=== PATIENT | male | born 1945 | race Caucasian/White ===

== ENCOUNTER 2021-09-24 07:45 | Inpatient (IN) | payer MEDICARE, OTHER ==
[~2021-09-24] VITALS: Ht 175.3 cm; Wt 77.4 kg
[2021-09-24 08:11] LABS: BASOPHILS # (AUTO) 0.1 10^3/uL (0.0-0.1); BASOPHILS % (AUTO) 1 % (0-10); EOSINOPHILS # (AUTO) 0.2 10^3/uL (0.0-0.3); EOSINOPHILS % (AUTO) 3 % (0-10); HEMATOCRIT 44 % (40-54); HEMOGLOBIN 14.9 g/dL (13.3-17.7); LYMPHOCYTES # (AUTO) 1.4 10^3/uL (1.0-4.0); LYMPHOCYTES % (AUTO) 16 % (12-44); MEAN CORPUSCULAR HEMOGLOBIN 31 pg (25-34); MEAN CORPUSCULAR HGB CONC 34 g/dL (32-36); MEAN CORPUSCULAR VOLUME 92 fL (80-99); MEAN PLATELET VOLUME 9.6 fL (9.0-12.2); MONOCYTES # (AUTO) 0.7 10^3/uL (0.0-1.0); MONOCYTES % (AUTO) 9 % (0-12); NEUTROPHILS # (AUTO) 5.9 10^3/uL (1.8-7.8); NEUTROPHILS % (AUTO) 71 % (42-75); PLATELET COUNT 164 10^3/uL (130-400); WHITE BLOOD COUNT 8.3 10^3/uL (4.3-11.0)
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
[2021-09-24 08:28] LABS: INR 0.9 (0.8-1.4); PROTHROMBIN TIME PATIENT 12.8 SEC (12.2-14.7)
--- NOTE | 2021-09-24 08:28 | Diagnostic Imaging Report ---
INDICATION: 76-year-old male with chest pain and shortness of breath COMPARISONS: None FINDINGS: Single view of the chest shows the cardiac contour to be upper limits normal. There is some mild central venous prominence. Some background chronic parenchymal changes. Few scattered atelectatic infiltrates may be present but no consolidations. There is no effusion or pneumothorax. There is a previous median sternotomy for a CABG. Soft tissues and bony thorax are grossly unremarkable. IMPRESSION: 1. Questionable mild central venous congestion. 2. Few scattered atelectatic infiltrates and some background chronic parenchymal changes but no acute consolidations. 3. Previous CABG. Dictated by: Dictated on workstation # [id number]
[2021-09-24 08:36] LABS: BILIRUBIN,TOTAL 0.2 MG/DL (0.1-1.0); CALCIUM 9.3 MG/DL (8.5-10.1); CREATININE SERUM 1.25 MG/DL (0.60-1.30); POTASSIUM 4.2 MMOL/L (3.6-5.0)
[2021-09-24 08:37] LABS: ALBUMIN 3.6 GM/DL (3.2-4.5); TOTAL PROTEIN 6.9 GM/DL (6.4-8.2)
[2021-09-24] MEDS ORDERED: NITROGLYCERIN 2% OINT 1 GM UNIT DOSE PACKET TOP ONE (08:45)
[2021-09-24] MEDS ORDERED: CLOPIDOGREL 300 MG (PLAVIX) TABLET PO ONE (08:45)
[2021-09-24] MEDS ORDERED: ENOXAPARIN 80 MG/0.8 ML (LOVENOX) SYR SC ONE (08:45)
[2021-09-24] MEDS ORDERED: NICOTINE 21 MG (NICODERM) PATCH TD ONE (09:15)
[2021-09-24] MEDS ORDERED: LORazepam INJ 2 MG/ML (ATIVAN) VIAL IVP ONE (09:15)
[2021-09-24 09:27] VITALS: BP 141/87
[2021-09-24] MEDS ORDERED: ANTACID SUSP 30 ML UDC (MYLANTA) PO PRN (10:30)
[2021-09-24] MEDS ORDERED: ONDANSETRON 4 MG (ZOFRAN) ORAL DISSOLVE TAB PO PRN (10:30)
[2021-09-24] MEDS ORDERED: MELATONIN 3 MG TABLET PO PRN (10:30)
[2021-09-24] MEDS ORDERED: ONDANSETRON 4 MG/2 ML (SDV) Z0FRAN IV PRN (10:30)
[2021-09-24] MEDS ORDERED: diphenhydrAMINE 25 MG TAB (BENADRYL) PO PRN (10:30)
[2021-09-24] MEDS ORDERED: LORazepam 0.5 MG (ATIVAN) TABLET PO PRN (10:30)
[2021-09-24] MEDS ORDERED: ACETAMINOPHEN 325 MG TABLET PO PRN ×2 (10:30→13:00)
[2021-09-24] MEDS ORDERED: polyethylene glycoL POWDER 17 GM (MIRALAX) PACK PO PRN (10:30)
--- NOTE | 2021-09-24 11:14 | Consultation-Cardiology ---
HPI-Cardiology Cardiology Consultation: Date of Consultation 09/24/21 Time Seen by a Provider: 10:40 Date of Admission Attending Physician Marilu Hancock MD Admitting Physician Chivo Membreno MD Consulting Physician ERMA MADRID MD, MA, FACP, FACC, FSCAI, CCDS HPI: Chief Complaint: Chest discomfort HPI 76 yo with midsternal soreness that began at 9 pm on 09/23/21, persisted all night, and resolved nearly completely in the ER at [facility] where he went at ap prox 7:30 am, he says. Has not experienced such discomfort before. It radiated to the L shoulder, it was improved by s/l NTG, it was not associated with n/v or diaphoresis. Denies palp or syncope or swelling. States has not been on any meds at all Review of Systems-Cardiology Review of Systems Constitutional: No malaise, No tiredness, No weight loss, No weight gain Eyes: No vision change Ears/Nose/Throat: No ear discharge, No nasal drainage, No recent hearing loss Respiratory: As described under HPI Cardiovascular: As described under HPI Gastrointestinal: As described under HPI Genitourinary: No dysuria, No hematuria Musculoskeletal: No back pain, No joint pain Skin: No rash, No ulcerations Psychiatric/Neurological: No seizure, No focal weakness, No syncope Hematologic: No bleeding abnormalities All Other Systems Reviewed Negative Unless Noted: Yes YKE-Bxmtcq-Ryicua Hx Patient Social History Smoking Status: Current Everyday Smoker Have you traveled recently?: No Alcohol Use?: No Pt feels they are or have been: No Tobacco type used: Cigarettes Past Medical History PMH As described under Assessment. Family Medical History Family Medical History: Does not report fam h/o early CAD Allergies and Home Medications Allergies Coded Allergies: No Known Drug Allergies (Unverified , 09/24/21) Patient Home Medication List Home Medication List Reviewed: Yes Physical Exam-Cardiology Physical Exam Vital Signs/I&O 09/24/21 09/24/21 09/24/21 09/24/21 07:50 09:27 10:26 10:30 Temp 36.3 Pulse 52 52 52 Resp 16 18 B/P (MAP) 143/79 (100) 141/87 Pulse Ox 95 96 97 O2 Delivery Room Air Room Air Room Air 09/24/21 10:30 Temp 36.6 Pulse 50 Resp 20 B/P (MAP) 132/88 Pulse Ox 97 O2 Delivery Room Air Capillary Refill : Less Than 3 Seconds Constitutional: AAO x 3, well-developed, well-nourished HEENT: EOMI, hearing is well preserved; No xanthelasmas are seen Neck: carotid pulses are 2 + bilaterally Respiratory: No accessory muscle use; other (good, bilateral air entry; prolonged exp) Cardiovascular: regular rate-rhythm, S1 and S2, systolic murmur (2/6 MSM at the card base) Gastrointestinal: No tender; soft; No guarding, No rebound; audible bowel sounds Extremities: No clubbing, No cyanosis, No significant edema Skin: warm/dry; No rash on exposed areas, No ulcerations on exposed areas Data Review Labs Laboratory Tests 09/24/21 08:00: White Blood Count 8.3, Red Blood Count 4.78, Hemoglobin 14.9, Hematocrit 44, Mean Corpuscular Volume 92, Mean Corpuscular Hemoglobin 31, Mean Corpuscular Hemoglobin Concent 34, Red Cell Distribution Width 12.9, Platelet Count 164, Mean Platelet Volume 9.6, Immature Granulocyte % (Auto) 0, Neutrophils (%) (Auto) 71, Lymphocytes (%) (Auto) 16, Monocytes (%) (Auto) 9, Eosinophils (%) (Auto) 3, Basophils (%) (Auto) 1, Neutrophils # (Auto) 5.9, Lymphocytes # (Auto) 1.4, Monocytes # (Auto) 0.7, Eosinophils # (Auto) 0.2, Basophils # (Auto) 0.1, Immature Granulocyte # (Auto) 0.0, Prothrombin Time 12.8, INR Comment 0.9, Activated Partial Thromboplast Time 31, D-Dimer 3.74H, Sodium Level 139, Potassium Level 4.2, Chloride Level 107, Carbon Dioxide Level 20L, Anion Gap 12, Blood Urea Nitrogen 27H, Creatinine 1.25, Estimat Glomerular Filtration Rate 59, BUN/Creatinine Ratio 22, Glucose Level 119H, Calcium Level 9.3, Corrected Calcium 9.6, Magnesium Level 2.0, Total Bilirubin 0.2, Aspartate Amino Transf (AST/SGOT) 70H, Alanine Aminotransferase (ALT/SGPT) 22, Alkaline Phosphatase 82, Myoglobin 353.4H, Troponin I 7.96*H, C-Reactive Protein < 0.30, Total Protein 6.9, Albumin 3.6, Lipase 39 A/P-Cardiology Assessment/Admission Diagnosis Ac NSTEMI CAD. H/o quadruple CABG in 2006 at [facility] (cor stents prior to that) Hypertension Chronic tobacco use (smokes) Discussion and Recomendations * Given ac NSTEMI, known CAD, and continuing risk factors, card cath is recommended * We discussed the rationale, procedure, risks, benefits, potential complications, and alternatives of card cath and possible ad hoc cor intervention. He understands and provides informed consent * Treated with DAPT and Lovenox * Not suitable for beta-kassi at this time because of bradycardia (heart rate in the 40s) * Treated with topical nitrates * Advised to quit smoking * Further recs based on hosp course Clinical Quality Measures AMI/AHF: ASA po Prior to arrival: Yes ERMA MADRID MD FACP FAC CCDS Sep 24, 2021 11:14
[2021-09-24] MEDS ORDERED: LIDOCAINE 1% INJ 20 ML VIAL ONE (11:25)
[2021-09-24] MEDS ORDERED: NS IV 1000 ML 1,000 ML ONE (11:25)
[2021-09-24] MEDS ORDERED: HEParin (CATH LAB) 2,000 ML IV ONE (11:25)
[2021-09-24] MEDS: ENOXAPARIN 80 MG/0.8 ML (LOVENOX) SYR SC SCH ×2 (11:33→23:26)
[2021-09-24] MEDS ORDERED: fentaNYL INJ 100 MCG/2 ML AMP ONE (11:43)
[2021-09-24] MEDS ORDERED: MIDAZOLAM 5 MG/5 ML (VERSED) VIAL ONE (11:43)
[2021-09-24] MEDS ORDERED: HEParin 1000 UNIT/ML (10ML VIAL) FOR BOLUS ONE (11:43)
[2021-09-24] MEDS ORDERED: EPTIFIBATIDE BOLUS 10 ML IV ONE (11:44)
[2021-09-24] MEDS ORDERED: PATIENT MAY USE OWN MEDS, ALL PO SCH (13:00)
[2021-09-24] MEDS ORDERED: oxyCODONE/APAP 5/325MG (PERCOCET 5) TABLET PO PRN (13:00)
[2021-09-24] MEDS: NS IV 1000 ML 1,000 ML IV SCH ×2 (13:05→23:18)
[2021-09-24] MEDS: NITROGLYCERIN 2% OINT 1 GM UNIT DOSE PACKET TOP SCH ×2 (14:17→23:26)
--- NOTE | 2021-09-24 15:19 | CARDIAC CATHETERIZATION ---
DATE OF SERVICE: 09/24/2021 CARDIAC CATHETERIZATION REPORT The patient is a 76-year-old gentleman who presented with acute non-ST elevation myocardial infarction. Cardiac catheterization was carried out after having obtained an informed consent. He has a history of quadruple coronary artery bypass surgery at [facility] in [place] in 2006. DESCRIPTION OF PROCEDURE: He was brought to the cardiac catheterization laboratory in a fasting state. The right groin was prepared and draped in the usual sterile fashion. Lidocaine 1% was used for local anesthesia. Modified Seldinger technique was used to advance a 5-Uruguayan sheath in right femoral artery, 5-Uruguayan JL4 catheter was used for left coronary angiography, 5-[place]ruguayan JR4 catheter was used for right coronary angiography and for angiography of the aortocoronary graft. A 5-Uruguayan pigtail catheter was used for left heart catheterization. Left ventricular angiography was not performed. This was to conserve contrast because we had to perform the aortic arch angiography to delineate the aortocoronary grafts. Also, his creatinine was mildly elevated at 1.25. Accordingly, we wanted to save contrast. The pigtail catheter was pulled back and aortic arch angiography was performed. The pigtail catheter was then removed and we used a 5-Uruguayan JR4 diagnostic catheter to advance an exchange length wire into the left subclavian artery and we then exchanged the JR4 catheter for an IM catheter, which we then used to engage the left internal mammary artery graft to the left anterior descending and angiography was performed. The catheter was then removed. Angiography of the right femoral artery was carried out through the sheath. Mynx was used to achieve hemostasis. He tolerated the procedure well. HEMODYNAMICS: Left ventricular end-diastolic pressure following coronary angiography was 8 mmHg. There is no significant pressure gradient on pullback across the aortic valve. AORTIC ARCH ANGIOGRAPHY: Ascending aortic and aortic arch angiography did not indicate any patent aortocoronary grafts. Proximal portions of the neck arteries exhibit mild to moderate plaque without significant stenoses. CORONARY ARTERY ANGIOGRAPHY: Coronary calcification is seen. Left main coronary artery has severe distal disease. Left anterior descending artery has approximately 80% proximal and ostial stenosis. The left circumflex artery is occluded at the ostium with distal reconstitution via bridging and left to left collaterals. The right coronary artery is occluded in its proximal portion. LEFT INTERNAL MAMMARY ARTERY GRAFT ANGIOGRAPHY: Left internal mammary artery graft to the mid left anterior descending artery is widely patent. There is good distal runoff. Retrograde flow is also seen in the left anterior descending. Collaterals from the left anterior descending artery seem to the left circumflex and the right coronary arteries. CONCLUSIONS: 1. Severe distal left main coronary artery disease. 2. 80% ostial and proximal stenosis of the left anterior descending. 3. Ostial occlusion of the left circumflex with distal reconstitution via bridging and [id number] collaterals. 4. Proximal occlusion of the right coronary with distal [id number] collateralization. 5. Patent MORRISSEY to LAD that also collateralizes left circumflex and distal right coronary arteries 6. All saphenous vein grafts are occluded. Aortic arch angiography did not indicate any patent aortocoronary graft. 7. Normal left ventricular end-diastolic pressure (8 mmHg). DISCUSSION AND RECOMMENDATIONS: Based on results of the study, it appears appropriate to continue a conservative approach. He has been advised him to quit smoking immediately and completely. He has not been taking any medications in the past at all, according to him. We have advised dual antiplatelet therapy. We will also continue with oral/topical nitrates, if needed. Beta kassi therapy will be provided if the heart rate tolerates it. At this time, he exhibits sinus bradycardia with heart rate in the high 40s and does not appear to be suitable for beta-kassi therapy. We have also advised statin therapy. Job ID: [id number] DocumentID: [id number] Dictated Date: 09/24/2021 12:46:26 Book Sewing Machine Operator Date: 09/24/2021 15:18:51 Dictated By: ERMA MADRID MD, MA, FACP, FACC, FSCAI, CCDS [facility]
[2021-09-24] MEDS ORDERED: ASTA4CAP PO (15:24)
[2021-09-24] MEDS ORDERED: MULT-1136 PO (15:24)
[2021-09-24] MEDS ORDERED: ASCO500T17 PO (15:24)
[2021-09-24] MEDS ORDERED: CHOL200074 PO (15:24)
--- NOTE | 2021-09-24 16:51 | History & Physical-Hospitalist ---
History of Present Illness HPI/Chief Complaint Carloz Whitehead is a 76 year old male with PMH CAD s/p CABG, tobacco abuse, who presented with chest pain. He reports that the pain strated last night. It was located in the center of his chest and does not radiate. He denies any neck, jaw, or arm pain. He denies shortness of breath. He had some diaphoresis when it started last night. He denies nausea and vomiting. He denies fever and chills. He denies cough. He denies abdominal pain and diarrhea. He does not take any medications. Source: patient Exam Limitations: no limitations Date Seen 09/24/21 Time Seen by a Provider: 10:20 Attending Physician Marilu Wayne MD PCP Chivo Membreno MD Referring Physician Date of Admission Sep 24, 2021 at 10:23 Home Medications & Allergies Home Medications Reviewed patient Home Medication Reconciliation performed by pharmacy medication reconciliations chief ophthalmic technician and/or nursing. Patients Allergies have been reviewed. Allergies Allergies Coded Allergies No Known Drug Allergies (Unverified09/24/21) Past Kwvphmh-Fremru-Vshalq Hx Patient Social History Tobacco Use?: Yes Tobacco type used: Cigarettes Smoking Status: Current Everyday Smoker Substance use?: No Alcohol Use?: No Pt feels they are or have been: No Immunizations Up To Date First/Initial COVID19 Vaccinat: NONE Current Status Advance Directives: No Communicates: Verbally Primary Language: Luxembourgish Preferred Spoken Language: Luxembourgish Is interpretation needed?: No Implanted or Applied Medical D: None Past Medical History Surgeries: CABG, Coronary Stent, Vascular Surgery (Abdominal aneurysm repair with stent) Aneurysm, Coronary Artery Disease Family Medical History Reviewed Nursing Family Hx No Pertinent Family Hx Review of Systems Constitutional: no symptoms reported EENTM: no symptoms reported Respiratory: no symptoms reported Cardiovascular: chest pain Gastrointestinal: no symptoms reported Genitourinary: no symptoms reported Musculoskeletal: no symptoms reported Skin: no symptoms reported Psychiatric/Neurological: No Symptoms Reported Physical Exam Physical Exam Vital Signs Vital Signs - First Documented 09/24/21 07:50 Temp 36.3 Pulse 52 Resp 16 B/P (MAP) 143/79 (100) Pulse Ox 95 O2 Delivery Room Air Capillary Refill : Less Than 3 Seconds Height, Weight, BMI Height: '" Weight: lbs. oz. kg; 25.18 BMI Method: General Appearance: No Apparent Distress, WD/WN HEENT: PERRL/EOMI, Pharynx Normal Neck: Normal Inspection, Supple Respiratory: Lungs Clear, Normal Breath Sounds, No Respiratory Distress Cardiovascular: Regular Rate, Rhythm, No Edema, No Murmur Gastrointestinal: Normal Bowel Sounds, Non Tender, Soft Extremity: Normal Inspection, Non Tender, No Pedal Edema Neurologic/Psychiatric: Alert, No Motor/Sensory Deficits, Normal Mood/Affect Skin: Normal Color, Warm/Dry Results Results/Procedures Labs Laboratory Tests 09/24/21 08:00 Patient resulted labs reviewed. Imaging: Reviewed Imaging Report Assessment/Plan Admission Diagnosis NSTEMI Admission Status: Inpatient Order (span 2 midnights) Reason for Inpatient Admission: NSTEMI Assessment and Plan NSTEMI CAD sp CABG Troponin 8 EKG without acute abnormalities Cardiology consulted ASA Plavix Lovenox Lipitor Nitro paste Planning for left heart cath Anxiety Ativan Tobacco abuse Nicotine patch Diagnosis/Problems Diagnosis/Problems (1) NSTEMI (non-ST elevated myocardial infarction) Status: Acute (2) Anxiety Status: Acute (3) Tobacco abuse Status: Chronic Clinical Quality Measures AMI/AHF: ASA po Prior to arrival: Yes MARILU WAYNE MD Sep 24, 2021 16:51
[2021-09-25 04:34] LABS: BASOPHILS # (AUTO) 0.1 10^3/uL (0.0-0.1); BASOPHILS % (AUTO) 1 % (0-10); EOSINOPHILS # (AUTO) 0.2 10^3/uL (0.0-0.3); EOSINOPHILS % (AUTO) 2 % (0-10); HEMATOCRIT 41 % (40-54); LYMPHOCYTES # (AUTO) 1.6 10^3/uL (1.0-4.0); LYMPHOCYTES % (AUTO) 22 % (12-44); MEAN CORPUSCULAR HEMOGLOBIN 32 pg (25-34); MEAN CORPUSCULAR HGB CONC 34 g/dL (32-36); MEAN CORPUSCULAR VOLUME 92 fL (80-99); MEAN PLATELET VOLUME 9.4 fL (9.0-12.2); MONOCYTES # (AUTO) 0.9 10^3/uL (0.0-1.0); MONOCYTES % (AUTO) 12 % (0-12); NEUTROPHILS # (AUTO) 4.8 10^3/uL (1.8-7.8); NEUTROPHILS % (AUTO) 63 % (42-75); PLATELET COUNT 149 10^3/uL (130-400); WHITE BLOOD COUNT 7.6 10^3/uL (4.3-11.0)
[2021-09-25 04:54] LABS: ALBUMIN 3.3 GM/DL (3.2-4.5)
[2021-09-25 04:55] LABS: POTASSIUM 4.5 MMOL/L (3.6-5.0)
[2021-09-25 04:56] LABS: CALCIUM 8.6 MG/DL (8.5-10.1)
[2021-09-25 04:57] LABS: TOTAL PROTEIN 6.1 GM/DL (6.4-8.2)
[2021-09-25 04:59] LABS: BILIRUBIN,TOTAL 0.6 MG/DL (0.1-1.0)
[2021-09-25 05:00] LABS: CREATININE SERUM 1.17 MG/DL (0.60-1.30)
[2021-09-25] MEDS: NITROGLYCERIN 2% OINT 1 GM UNIT DOSE PACKET TOP SCH (06:22)
[2021-09-25] MEDS ORDERED: ASPI81TA64 PO (08:12)
[2021-09-25] MEDS ORDERED: CLOP75TA28 PO (08:12)
[2021-09-25] MEDS ORDERED: ATOR40TA PO (08:12)
[2021-09-25] MEDS: NS IV 1000 ML 1,000 ML IV SCH (08:48)
[2021-09-25] MEDS ORDERED: NICOTINE 21 MG (NICODERM) PATCH TD SCH (09:00)
[2021-09-25] MEDS ORDERED: ASPIRIN 81 MG CHEW (CHILDREN'S ASA) PO SCH (09:00)
[2021-09-25] MEDS ORDERED: CLOPIDOGREL 75 MG (PLAVIX) TABLET PO SCH (09:00)
--- NOTE | 2021-09-25 09:14 | Progress Note - Cardiology ---
Cardiology SOAP Progress Note Subjective: Sitting up in recliner at the bedside States he wants to go home No c/o CP, palpitations, SOB, syncope or near syncope Objective: I&O/Vital Signs 09/24/21 09/24/21 09/24/21 09/25/21 22:00 23:00 23:59 00:00 Temp 36.0 Pulse 50 53 Resp 21 19 B/P (MAP) 137/60 128/64 Pulse Ox 96 95 97 O2 Delivery Room Air Room Air Room Air 09/25/21 09/25/21 09/25/21 09/25/21 00:00 01:00 01:00 02:00 Pulse 54 52 52 53 Resp 20 20 18 B/P (MAP) 136/70 132/67 121/64 Pulse Ox 93 95 96 O2 Delivery Room Air Room Air Room Air 09/25/21 09/25/21 09/25/21 09/25/21 03:00 04:00 04:00 05:00 Pulse 64 61 57 Resp 18 23 20 B/P (MAP) 130/68 139/67 135/24 Pulse Ox 96 93 95 95 O2 Delivery Room Air Room Air Room Air Room Air 09/25/21 09/25/21 09/25/21 06:00 07:00 08:00 Temp 36.9 Pulse 60 53 Resp 23 B/P (MAP) 144/67 Pulse Ox 97 O2 Delivery Room Air 09/25/21 00:00 Intake Total 600 ml Output Total 700 ml Balance -100 ml Side: right Groin site without hematoma: Yes Condition: DP/PT pulses palpable, extremity w/d/p Bruising: mild bruising Constitutional: AAO x 3, well-developed, well-nourished Respiratory: No accessory muscle use; other (good, bilateral air entry; prolonged exp) Cardiovascular: regular rate-rhythm, S1 and S2, systolic murmur (2/6 MSM at the card base) Gastrointestional: No tender; soft; No guarding, No rebound; audible bowel sounds Extremities: No clubbing, No cyanosis, No significant edema Skin: warm/dry; No rash on exposed areas, No ulcerations on exposed areas Results/Procedures: Labs Laboratory Tests 09/24/21 12:35: Troponin I 18.206*H 09/25/21 04:05: White Blood Count 7.6, Red Blood Count 4.45, Hemoglobin 14.0, Hematocrit 41, Mean Corpuscular Volume 92, Mean Corpuscular Hemoglobin 32, Mean Corpuscular Hemoglobin Concent 34, Red Cell Distribution Width 12.9, Platelet Count 149, Mean Platelet Volume 9.4, Immature Granulocyte % (Auto) 0, Neutrophils (%) (Au to) 63, Lymphocytes (%) (Auto) 22, Monocytes (%) (Auto) 12, Eosinophils (%) (Auto) 2, Basophils (%) (Auto) 1, Neutrophils # (Auto) 4.8, Lymphocytes # (Auto) 1.6, Monocytes # (Auto) 0.9, Eosinophils # (Auto) 0.2, Basophils # (Auto) 0.1, Immature Granulocyte # (Auto) 0.0, Sodium Level 135, Potassium Level 4.5, Chloride Level 109H, Carbon Dioxide Level 17L, Anion Gap 9, Blood Urea Nitrogen 21H, Creatinine 1.17, Estimat Glomerular Filtration Rate 64, BUN/Creatinine Ratio 18, Glucose Level 99, Calcium Level 8.6, Corrected Calcium 9.2, Total Bilirubin 0.6, Aspartate Amino Transf (AST/SGOT) 79H, Alanine Aminotransferase (ALT/SGPT) 27, Alkaline Phosphatase 57, Total Protein 6.1L, Albumin 3.3, Triglycerides Level 71, Cholesterol Level 155, LDL Cholesterol Direct 94, VLDL Cholesterol 14, HDL Cholesterol 51, Thyroid Stimulating Hormone (TSH) 2.54 Procedures S/P cardiac cath with successful coronary intervention on 09-24-21 A/P: Assessment: Ac NSTEMI CAD - H/o quadruple CABG in 2006 at [facility] (cor stents prior to that) - Severe distal left main coronary artery disease. 80% ostial and proximal stenosis of the left anterior descending. Ostial occlusion of the left circumflex with distal reconstitution via bridging and left to left collaterals. Proximal occlusion of the right coronary with distal left to right collateralization. Normal left ventricular end-diastolic pressure (8 mmHg). Aortic arch angiography did not indicate any patent aortocoronary graft. Hypertension Chronic tobacco use (smokes) Plan: * Wants to go home * S/P cardiac cath with successful coronary intervention on 09-24-21 * States he will f/u with is primary data control clerk, Dr. Macias in [place] * Not suitable for beta-kassi at this time because of bradycardia (heart rate in the 40s) * Change topical nitrate to oral * Advised to quit smoking Clinical Quality Measures AMI/AHF: ASA po Prior to arrival: Yes WILL MOREAU Sep 25, 2021 09:14
[2021-09-25] MEDS ORDERED: ISOS60TA63 PO (09:58)
--- NOTE | 2021-09-25 10:30 | Progress Note - Cardiology ---
Cardiology SOAP Progress Note Subjective: No cp or palp or syncope or shortness of breath at rest No n/v/d No groin or leg discomfort Anxious to go home. Does not wish to stay in the hosp any longer Objective: I&O/Vital Signs 09/24/21 09/25/21 09/25/21 09/25/21 23:59 00:00 00:00 01:00 Temp 36.0 Pulse 54 52 Resp 20 20 B/P (MAP) 136/70 132/67 Pulse Ox 97 93 95 O2 Delivery Room Air Room Air Room Air 09/25/21 09/25/21 09/25/21 09/25/21 01:00 02:00 03:00 04:00 Pulse 52 53 64 61 Resp 18 18 23 B/P (MAP) 121/64 130/68 139/67 Pulse Ox 96 96 93 O2 Delivery Room Air Room Air Room Air 09/25/21 09/25/21 09/25/21 09/25/21 04:00 05:00 06:00 07:00 Pulse 57 60 53 Resp 20 23 B/P (MAP) 135/24 144/67 Pulse Ox 95 95 97 O2 Delivery Room Air Room Air Room Air 09/25/21 09/25/21 08:00 08:00 Temp 36.9 O2 Delivery Room Air 09/25/21 00:00 Intake Total 600 ml Output Total 700 ml Balance -100 ml Side: right Groin site without hematoma: Yes Condition: DP/PT pulses palpable, extremity w/d/p Bruising: mild bruising Constitutional: AAO x 3, well-developed, well-nourished Respiratory: No accessory muscle use; other (good, bilateral air entry; prolon ged exp) Cardiovascular: regular rate-rhythm, S1 and S2, systolic murmur (2/6 MSM at the card base) Gastrointestional: No tender; soft; No guarding, No rebound; audible bowel sounds Extremities: No clubbing, No cyanosis, No significant edema Skin: warm/dry; No rash on exposed areas, No ulcerations on exposed areas Results/Procedures: Labs Laboratory Tests 09/24/21 12:35: Troponin I 18.206*H 09/25/21 04:05: White Blood Count 7.6, Red Blood Count 4.45, Hemoglobin 14.0, Hematocrit 41, Mean Corpuscular Volume 92, Mean Corpuscular Hemoglobin 32, Mean Corpuscular Hemoglobin Concent 34, Red Cell Distribution Width 12.9, Platelet Count 149, Mean Platelet Volume 9.4, Immature Granulocyte % (Auto) 0, Neutrophils (%) (Auto) 63, Lymphocytes (%) (Auto) 22, Monocytes (%) (Auto) 12, Eosinophils (%) (Auto) 2, Basophils (%) (Auto) 1, Neutrophils # (Auto) 4.8, Lymphocytes # (Auto) 1.6, Monocytes # (Auto) 0.9, Eosinophils # (Auto) 0.2, Basophils # (Auto) 0.1, Immature Granulocyte # (Auto) 0.0, Sodium Level 135, Potassium Level 4.5, Chloride Level 109H, Carbon Dioxide Level 17L, Anion Gap 9, Blood Urea Nitrogen 21H, Creatinine 1.17, Estimat Glomerular Filtration Rate 64, BUN/Creatinine Ratio 18, Glucose Level 99, Calcium Level 8.6, Corrected Calcium 9.2, Total Bilirubin 0.6, Aspartate Amino Transf (AST/SGOT) 79H, Alanine Aminotransferase (ALT/SGPT) 27, Alkaline Phosphatase 57, Total Protein 6.1L, Albumin 3.3, Triglycerides Level 71, Cholesterol Level 155, LDL Cholesterol Direct 94, VLDL Cholesterol 14, HDL Cholesterol 51, Thyroid Stimulating Hormone (TSH) 2.54 Microbiology 09/24/21 MRSA Screen - Final, Complete MRSA not isolated A/P: Assessment: Ac NSTEMI CAD - H/o quadruple CABG in 2006 at [facility] (cor stents prior to that) - Card cath on 09/24/21: Severe distal left main coronary artery disease. 80% ostial and proximal stenosis of the left anterior descending. Ostial occlusion of the left circumflex with distal reconstitution via bridging and [id number] collaterals. Proximal occlusion of the right coronary with distal cget-ea-[id number] collateralization. Widely patent MORRISSEY to mid LAD with good distal runoff and collaterals to the LCX and to distal RCA. Aortic arch angiography did not indicate any patent aortocoronary graft. Normal left ventricular end-diastolic pressure (8 mmHg). - Echo on 09/25/21: LVEF 60-65%, no distinct regional wall motion abnormality, moderate concentric LVH, mild enlargement of LA, aortic valve sclerosis w/o significant stenosis, PASP 30-35 mmHg Hypertension Chronic tobacco use (smokes) Plan: * Wants to go home * States he will f/u with is primary doughnut glazier, Dr. Macias in [place] * Not suitable for beta-kassi at this time because of bradycardia (heart rate in the 40s) * Change topical nitrate to oral * DAPT and statin added during this hospitalization. Has tolerated it well. Have advised continuation of current regimen until f/u with his doughnut glazier, which we have advised VANDANA * Advised to quit smoking Clinical Quality Measures AMI/AHF: ASA po Prior to arrival: Yes ERMA MADRID MD FACP FACC CCDS Sep 25, 2021 10:30
--- NOTE | 2021-09-25 17:55 | Discharge Summary ---
Discharge Summary Hospital Course Was the Problem List Reviewed?: Yes Problems/Dx: (1) NSTEMI (non-ST elevated myocardial infarction) Status: Acute (2) Anxiety Status: Acute (3) Tobacco abuse Status: Chronic Hospital Course Date of Admission: Sep 24, 2021 at 10:23 Admission Diagnosis : NSTEMI Family Physician/Provider: Chivo Membreno MD Date of Discharge: 09/25/21 Discharge Diagnosis: NSTEMI, CAD Hospital Course: Carloz Whitehead is a 76 year old male with PMH CAD s/p CABG, tobacco abuse, who presented with chest pain and was admitted with NSTEMI. Cardiology was consulted and assisted with his care. His troponin was significantly elevated. He underwent a left heart catheterization which showed no significant coronary artery disease amenable to intervention. He had not been taking any medications prior to admission. He was stared on dual antiplatelet therapy with aspirin and Plavix. He was started on Lipitor. He was unable to tolerate beta kassi due to bradycardia. He was started on Imdur. He was advised to quit smoking. 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 He was discharged home in stable condition. Labs and Pending Lab Test: Laboratory Tests 09/25/21 04:05: White Blood Count 7.6, Red Blood Count 4.45, Hemoglobin 14.0, Hematocrit 41, Mean Corpuscular Volume 92, Mean Corpuscular Hemoglobin 32, Mean Corpuscular Hemoglobin Concent 34, Red Cell Distribution Width 12.9, Platelet Count 149, Mean Platelet Volume 9.4, Immature Granulocyte % (Auto) 0, Neutrophils (%) (Auto) 63, Lymphocytes (%) (Auto) 22, Monocytes (%) (Auto) 12, Eosinophils (%) (Auto) 2, Basophils (%) (Auto) 1, Neutrophils # (Auto) 4.8, Lymphocytes # (Auto) 1.6, Monocytes # (Auto) 0.9, Eosinophils # (Auto) 0.2, Basophils # (Auto) 0.1, Immature Granulocyte # (Auto) 0.0, Sodium Level 135, Potassium Level 4.5, Chloride Level 109H, Carbon Dioxide Level 17L, Anion Gap 9, Blood Urea Nitrogen 21H, Creatinine 1.17, Estimat Glomerular Filtration Rate 64, BUN/Creatinine Ratio 18, Glucose Level 99, Calcium Level 8.6, Corrected Calcium 9.2, Total Bilirubin 0.6, Aspartate Amino Transf (AST/SGOT) 79H, Alanine Aminotransferase (ALT/SGPT) 27, Alkaline Phosphatase 57, Total Protein 6.1L, Albumin 3.3, Triglycerides Level 71, Cholesterol Level 155, LDL Cholesterol Direct 94, VLDL Cholesterol 14, HDL Cholesterol 51, Thyroid Stimulating Hormone (TSH) 2.54 Microbiology 09/24/21 MRSA Screen - Final, Complete MRSA not isolated Home Meds Active Isosorbide Mononitrate ER (Isosorbide Mononitrate) 60 Mg Tab 60 Mg PO DAILY Children's Aspirin (Aspirin) 81 Mg Tab.chew 81 Mg PO DAILY Lipitor (Atorvastatin Calcium) 40 Mg Tablet 40 Mg PO HS Clopidogrel (Clopidogrel Bisulfate) 75 Mg Tablet 75 Mg PO DAILY Reported Multivitamin 1 Each Tablet 1 Each PO DAILY Vitamin C (Ascorbic Acid) 500 Mg Tablet 500 Mg PO DAILY Vitamin D3 (Cholecalciferol (Vitamin D3)) 50 Mcg Capsule 50 Mcg PO DAILY Assessment/Pt Instructions Take medications as prescribed. Follow up with your PCP and scrap dealer. Return with worsening chest pain, shortness of breath, or if you feel like you are getting worse. Discharge Planning: <30 minutes discharge planning Discharge Instructions Discharge Diet: Low Sodium Diet Activity as Tolerated: Yes Consultations Cardiology Discharge Physical Examination Vital Signs Vital Signs Date Time Temp Pulse Resp B/P (MAP) Pulse Ox O2 Delivery O2 Flow Rate FiO2 09/25/21 10:45 09/25/21 08:00 Room Air 09/25/21 08:00 36.9 09/25/21 07:00 53 09/25/21 06:00 23 97 General Appearance: No Apparent Distress, WD/WN Respiratory: Lungs Clear, No Respiratory Distress Cardiovascular: Regular Rate, Rhythm, No Murmur Gastrointestinal: Normal Bowel Sounds, Soft Extremity: Normal Inspection, No Pedal Edema Skin: Normal Color, Warm/Dry Neurologic/Psychiatric: Alert, Oriented x3, No Motor/Sensory Deficits Allergies: Coded Allergies: No Known Drug Allergies (Unverified , 09/24/21) Discharge Summary Date of Admission Sep 24, 2021 at 10:23 Date of Discharge Sep 25, 2021 at 10:45 Discharge Date: Sep 25, 2021 Discharge Time: 10:45 Admission Diagnosis NSTEMI Consults/Procedures Consulations Cardiology Procedures Left heart cath Discharge Diagnosis NSTEMI CAD (1) NSTEMI (non-ST elevated myocardial infarction) Status: Acute (2) Anxiety Status: Acute (3) Tobacco abuse Status: Chronic Clinical Quality Measures AMI/AHF: ASA po Prior to arrival: Yes CARY WAYNE MD Sep 25, 2021 17:55
[2021-09-26] MEDS ORDERED: NICOTINE PATCH REMOVAL TP SCH (08:59)
== END 2021-09-25 10:45 | disposition home or self-care (01) | DRG 281 ==
LOC: ER FS 07:58 → ICU 10:23
PROVIDERS: ADMIT Internal Medicine; ATTEND Internal Medicine
PROC: 4A023N7 Measurement of Cardiac Sampling and Pressure, Left Heart, Percutaneous Approach (ICD-10-PCS; principal; 2021-09-24)
PROC: B2111ZZ Fluoroscopy of Multiple Coronary Arteries using Low Osmolar Contrast (ICD-10-PCS; 2021-09-24)
PROC: B2181ZZ Fluoroscopy of Left Internal Mammary Bypass Graft using Low Osmolar Contrast (ICD-10-PCS; 2021-09-24)
PROC: B3101ZZ Fluoroscopy of Thoracic Aorta using Low Osmolar Contrast (ICD-10-PCS; 2021-09-24)
DX: I21.4 Non-ST elevation (NSTEMI) myocardial infarction (principal); I25.719 Atherosclerosis of autologous vein coronary artery bypass graft(s) with unspecified angina pectoris; I25.119 Atherosclerotic heart disease of native coronary artery with unspecified angina pectoris; I10 Essential (primary) hypertension; F17.210 Nicotine dependence, cigarettes, uncomplicated; F41.9 Anxiety disorder, unspecified; Z95.5 Presence of coronary angioplasty implant and graft; Z95.1 Presence of aortocoronary bypass graft
CPT/HCPCS: 36221; 36415; 71045; 80053; 80061; 83690; 83735; 83874; 84443; 84484; 85025; 85379; 85610; 85730; 86141; 87081; 93005; 93041; 93306; 93459